=== PATIENT | male | born 1990 | race African-American/Black ===

== ENCOUNTER 2018-08-23 20:21 | Emergency (ER) | payer MEDICAID ==
[~2018-08-23] VITALS: Ht 175.3 cm; Wt 77.0 kg
[2018-08-23] MEDS ORDERED: HYDROCODONE/ACETAMINOPHEN 5/325MG TABLET PO ONE (21:30)
[2018-08-23] MEDS ORDERED: IBUPROFEN 600MG TABLET PO NR (22:31)
[2018-08-23 23:01] VITALS: BP 122/73
== END 2018-08-24 00:46 | disposition home or self-care (01) ==
LOC: ER 20:21
DX: S62.650A Nondisplaced fracture of middle phalanx of right index finger, initial encounter for closed fracture (principal); W51.XXXA Accidental striking against or bumped into by another person, initial encounter; Y93.62 Activity, american flag or touch football; Y92.89 Other specified places as the place of occurrence of the external cause
CPT/HCPCS: 29130; 73140; 99283